=== PATIENT | female | born 1995 | race Caucasian/White ===

== ENCOUNTER 2017-10-10 23:05 | Emergency (ER) | payer SELFPAY ==
[~2017-10-10] VITALS: Ht 157.5 cm; Wt 61.0 kg
[2017-10-10] MEDS ORDERED: ACETAMINOPHEN 325MG TABLET PO ONE (23:45)
[2017-10-10 23:56] LABS: BASOPHILS % 0.5 % (0.0-2.0); EOSINOPHILS % 0.8 % (0.0-5.0); HEMATOCRIT. 33.4 % (36.0-48.0); HEMOGLOBIN. 11.3 g/dL (12.0-16.0); LYMPHOCYTES % 30.3 % (20.0-50.0); MEAN CORPUSCULAR HEMOGLOBIN 30.9 pg (28.0-32.0); MEAN CORPUSCULAR VOLUME 91.1 fL (81.0-99.0); MONOCYTES % 6.6 % (2.0-8.0); NEUTROPHILS % 61.8 % (40.0-76.0); PLATELET 377 x1000/uL (130-400); RED BLOOD CELL COUNT 3.67 mill/uL (4.2-5.4); RED CELL DISTRIBUTION WIDTH 14.7 % (11.6-14.6)
[2017-10-11 00:02] LABS: CHLORIDE 109 mEq/L (98-107)
[2017-10-11 00:07] LABS: CARBON DIOXIDE 24 mEq/L (21-32); ETHANOL BLOOD 120 mg/dL
[2017-10-11 00:19] LABS: HCG SCREEN NEGATIVE
[2017-10-11 00:21] LABS: CLARITY URINE CLEAR (CLEAR); COLOR URINE YELLOW (YELLOW); KETONES URINE NEGATIVE (NEGATIVE); LEUKOCYTE ESTERASE URINE 1+ (NEGATIVE); NITRITE URINE NEGATIVE (NEGATIVE); OCCULT BLOOD URINE 2+ (NEGATIVE); PH URINE 5.5 (4.5-8.0); PROTEIN URINE NEGATIVE (NEGATIVE); SPECIFIC GRAVITY URINE 1.012 (1.005-1.030); UROBILINOGEN URINE 0.2 E.U./dL (0.2-1.0)
[2017-10-11 00:49] LABS: *AMPHETAMINES SCREEN URINE NEGATIVE (NEGATIVE); *BARBITURATES SCREEN URINE NEGATIVE (NEGATIVE); *BENZODIAZEPINES SCREEN URINE NEGATIVE (NEGATIVE); *COCAINE SCREEN URINE NEGATIVE (NEGATIVE); METHADONE URINE SCREEN NEGATIVE (NEGATIVE); OPIATES URINE SCREEN NEGATIVE (NEGATIVE); PHENCYCLIDINE URINE SCREEN NEGATIVE (NEGATIVE)
[2017-10-11 00:59] LABS: CANNABINOID URINE SCREEN PRESUMTIVE POSITIVE (NEGATIVE)
[2017-10-11 03:19] VITALS: BP 131/68
== END 2017-10-11 03:27 | disposition home or self-care (01) ==
LOC: ER 23:29
DX: S02.2XXA Fracture of nasal bones, initial encounter for closed fracture (principal); S10.93XA Contusion of unspecified part of neck, initial encounter; F12.10 Cannabis abuse, uncomplicated; F14.10 Cocaine abuse, uncomplicated; Y04.0XXA Assault by unarmed brawl or fight, initial encounter; Y93.89 Activity, other specified; Y92.59 Other trade areas as the place of occurrence of the external cause
CPT/HCPCS: 36415; 70450; 70486; 72125; 80048; 80305; 81001; 84703; 85025; 99285; G0482; Z7610